=== PATIENT | female | born 1980 | race Caucasian/White ===

== ENCOUNTER 2017-10-22 11:28 | Emergency (ER) | payer OTHER ==
[~2017-10-22] VITALS: Ht 165.1 cm; Wt 82.5 kg
[~2017-10-22 11:28] MED LIST: BUPR-79 PO; ETONMIS VAGRING; LISI-729 PO
[2017-10-22 11:30] VITALS: TEMP 36.8; Ht 165.1 cm; Wt 82.5 kg
[2017-10-22] MEDS ORDERED: LORAZEPAM 2 MG/ML 1 ML VIAL IV STA (11:35)
[2017-10-22] MEDS ORDERED: SODIUM CHLORIDE 0.9% 1000ML 1,000 ML IV STA (11:35)
[2017-10-22] MEDS ORDERED: ALBUT/IPRATROP 3MG/0.5MG NEB 3 ML VIAL INH STA (11:35)
--- NOTE | 2017-10-22 11:40 | EMERGENCY ROOM VISIT NOTE ---
History Report prepared by Genia: Chaim Myers Under the Supervision of: Dr. Alfie Azul D.O. First contact with patient: 11:29 Stated Complaint: U History of Present Illness The patient is a 37 year old female who presents to the Emergency Room with complaints of worsening cough that began 3 days ago. She adds that it feels like "broke glass in her chest". Patient states that she feels "physically shaky ". She adds that she feels like she going to pass out. She adds that she does not know if she had a fever but states that she is "always hot". Patient states that she has chest tightness but that it has been improving. Pertinent past medical history includes anxiety and high blood pressure. She states that she takes 10mg of Lisinopril for her high blood pressure. Pertinent past surgical history includes a laparoscopy to treat her endometriosis. Patient denies tobacco and alcohol use. Source of History: patient Onset: 3 days ago Position: chest Timing: worsening Modifying Factors (Relieving): other (None) Associated Symptoms: + chest pain (Chest tightness) Review of Systems See HPI for pertinent positives & negatives. A total of 10 systems reviewed and were otherwise negative. Past Medical & Surgical Medical Problems: (1) Breast cancer (2) Heart disease (3) Hypertension Family History Heart disease Hypertension Social History Smoking Status: Never Smoker Alcohol Use: none Drug Use: none Marital Status: single Housing Status: lives alone Occupation Status: employed Current/Historical Medications Scheduled Albuterol Hfa (Ventolin Hfa), 2 PUFF INH Q4 Etonogestrel/Ethinyl Estradiol (Nuvaring), 1 EA VAGRING MONTHLY Fluoxetine (Prozac), Unknown Dose PO DAILY Lisinopril (Zestril), 10 MG PO DAILY Oseltamivir (Tamiflu), 75 MG PO BID Allergies Coded Allergies: No Known Allergies (Unverified , 10/22/17) Physical Exam Vital Signs Date Time Temp Pulse Resp B/P (MAP) Pulse Ox O2 Delivery O2 Flow Rate FiO2 10/22/17 14:21 84 16 142/88 98 10/22/17 13:25 87 24 137/90 97 Room Air 10/22/17 12:44 90 20 138/80 99 Room Air 10/22/17 12:18 98 10/22/17 11:55 103 18 143/101 100 Room Air 10/22/17 11:52 96 Room Air 10/22/17 11:51 95 Room Air 10/22/17 11:30 36.8 103 20 154/122 99 Room Air Physical Exam GENERAL: Patient is awake, alert, and in no acute distress. Patient is resting comfortably and somewhat anxious EYES: The conjunctivae are clear. The pupils are round and reactive. EARS, NOSE, MOUTH AND THROAT: The nose is without any evidence of any deformity. Mucous membranes are moist tongue is midline NECK: The neck is nontender and supple. RESPIRATORY: Scattered rhonchi noted throughout. No tachypnea or conversational dyspnea noted. CARDIOVASCULAR: Regular rate and rhythm noted there no murmurs rubs or gallops normal S1 normal S2 GASTROINTESTINAL: The abdomen is soft. Bowel sounds are present in all quadrants. Abdomen is nontender MUSCULOSKELETAL/EXTREMITIES: There is no evidence of gross deformity full range of motion is noted in the hips and shoulders SKIN: There is no obvious evidence of any rash. There are no petechiae, pallor or cyanosis noted. NEUROLOGIC: Patient is awake alert and oriented x3 strength is symmetric patellar reflexes are 2+ bilaterally Medical Decision & Procedures ER Provider Diagnostic Interpretation: Radiology results as stated below per my review and radiologist interpretation: HEAD WITHOUT CONTRAST (CT) CLINICAL HISTORY: 37 years-old Female presenting with dizziness. TECHNIQUE: Multidetector CT imaging of the head was performed without the use of intravenous contrast. IV contrast: None. A dose lowering technique was used consistent with the principles of ALARA (as low as reasonably achievable). COMPARISON: 04/26/2017. CT DOSE (mGy.cm): The estimated cumulative dose is 537.48 mGy.cm. FINDINGS: Dat Instructor topogram: Unremarkable. Ventricles and sulci normal in size. Brain parenchyma normal in appearance with preserved ricks-white differentiation. No mass effect or midline shift. No hemorrhage or acute territorial infarct. No extra-axial fluid collection. Paranasal sinuses and mastoid air cells clear. Calvarium intact. IMPRESSION: 1. No acute intracranial abnormality. Electronically signed by: Major Farias M.D. 10/22/2017 1:31 PM CHEST ONE VIEW PORTABLE CLINICAL HISTORY: 37 years-old Female presenting with EVALUATE ALTERED MENTAL STATUS/WEAKNESS. TECHNIQUE: Portable upright AP view of the chest was obtained. COMPARISON: 04/26/2017. FINDINGS: Cardiomediastinal silhouette normal. No focal opacity. No large effusion or pneumothorax. Osseous structures normal. Upper abdomen normal. IMPRESSION: 1. No acute cardiopulmonary disease. Electronically signed by: Major Farias M.D. 10/22/2017 11:50 AM Laboratory Results 10/22/17 11:45 Red Blood Count 4.84, Mean Corpuscular Volume 87.8, Mean Corpuscular Hemoglobin 30.4, Mean Corpuscular Hemoglobin Concent 34.6, Mean Platelet Volume 9.7, Neutrophils (%) (Auto) 51.4, Lymphocytes (%) (Auto) 38.6, Monocytes (%) (Auto) 8.4, Eosinophils (%) (Auto) 1.2, Basophils (%) (Auto) 0.3, Neutrophils # (Auto) 3.50, Lymphocytes # (Auto) 2.63, Monocytes # (Auto) 0.57, Eosinophils # (Auto) 0.08, Basophils # (Auto) 0.02 10/22/17 11:45 Test 10/22/17 11:45 10/22/17 12:45 White Blood Count 6.81 K/uL (4.8-10.8) Red Blood Count 4.84 M/uL (4.2-5.4) Hemoglobin 14.7 g/dL (12.0-16.0) Hematocrit 42.5 % (37-47) Mean Corpuscular Volume 87.8 fL (80-100) Mean Corpuscular Hemoglobin 30.4 pg (25-34) Mean Corpuscular Hemoglobin Concent 34.6 g/dl (32-36) Platelet Count 239 K/uL (130-400) Mean Platelet Volume 9.7 fL (7.4-10.4) Neutrophils (%) (Auto) 51.4 % Lymphocytes (%) (Auto) 38.6 % Monocytes (%) (Auto) 8.4 % Eosinophils (%) (Auto) 1.2 % Basophils (%) (Auto) 0.3 % Neutrophils # (Auto) 3.50 K/uL (1.4-6.5) Lymphocytes # (Auto) 2.63 K/uL (1.2-3.4) Monocytes # (Auto) 0.57 K/uL (0.11-0.59) Eosinophils # (Auto) 0.08 K/uL (0-0.5) Basophils # (Auto) 0.02 K/uL (0-0.2) RDW Standard Deviation 39.9 fL (36.4-46.3) RDW Coefficient of Variation 12.3 % (11.5-14.5) Immature Granulocyte % (Auto) 0.1 % Immature Granulocyte # (Auto) 0.01 K/uL (0.00-0.02) Prothrombin Time 9.2 SECONDS (9.0-12.0) Prothromb Time International Ratio 0.9 (0.9-1.1) Activated Partial Thromboplast Time 25.7 SECONDS (21.0-31.0) Partial Thromboplastin Ratio 1.0 Anion Gap 9.0 mmol/L (3-11) Est Creatinine Clear Calc Drug Dose 83.3 ml/min Estimated GFR () 84.5 Estimated GFR (Non- 72.9 BUN/Creatinine Ratio 10.2 (10-20) Calcium Level 8.9 mg/dl (8.5-10.1) Magnesium Level 2.2 mg/dl (1.8-2.4) Total Bilirubin 0.5 mg/dl (0.2-1) Direct Bilirubin 0.2 mg/dl (0-0.2) Aspartate Amino Transf (AST/SGOT) 46 U/L (15-37) Alanine Aminotransferase (ALT/SGPT) 48 U/L (12-78) Alkaline Phosphatase 116 U/L (45-117) Troponin I < 0.015 ng/ml (0-0.045) Total Protein 8.5 gm/dl (6.4-8.2) Albumin 3.3 gm/dl (3.4-5.0) Thyroid Stimulating Hormone (TSH) 2.440 uIu/ml (0.300-4.500) Human Chorionic Gonadotropin, Qual NEG (NEG) Influenza Type A (RT-PCR) Neg for Influ A (NEG) Influenza Type B (RT-PCR) POS for Influ B (NEG) Urine Color YELLOW Urine Appearance CLEAR (CLEAR) Urine pH 5.5 (4.5-7.5) Urine Specific [place] 1.010 (1.000-1.030) Urine Protein NEG (NEG) Urine Glucose (UA) NEG (NEG) Urine Ketones NEG (NEG) Urine Occult Blood NEG (NEG) Urine Nitrite NEG (NEG) Urine Bilirubin NEG (NEG) Urine Urobilinogen NEG (NEG) Urine Leukocyte Esterase NEG (NEG) Laboratory results per my review. Medications Administered Medications (Trade) Dose Ordered Sig/Eric Route Start Time Stop Time Status Last Admin Dose Admin Sodium Chloride 1,000 ml @ 999 mls/hr Q1H1M STAT IV 10/22/17 11:35 10/22/17 12:35 DC 10/22/17 11:48 999 MLS/HR Lorazepam (Ativan Inj) 0.5 mg NOW STAT IV 10/22/17 11:35 10/22/17 11:37 DC 10/22/17 11:48 0.5 MG Albuterol/ Ipratropium (Duoneb) 3 ml NOW STAT INH 10/22/17 11:35 10/22/17 11:37 DC 10/22/17 11:48 3 ML Oseltamivir Phosphate (Tamiflu Cap) 75 mg NOW STAT PO 10/22/17 12:57 10/22/17 12:58 DC 10/22/17 13:29 75 MG ECG Per My Interpretation Indication: SOB/dyspnea Rate (beats per minute): 85 Rhythm: normal sinus Findings: no ectopy, other (No acute ST segments) Comparison ECG Date: 04/26/17 Change: no significant change ED Course 1130: The patient was evaluated in room B3B. A complete history and physical examination were performed. 1135: Duoneb 3ml INH, Ativan Inj 0.5mg IV, and NSS 1,000 ml @ 999 mls/hr IV 1216: I reassessed the patient who is resting comfortably. 1257: Tamiflu Cap 75mg PO 1321: Upon reevaluation, the patient is resting comfortably. I discussed the results and treatment plan with her. She verbalized agreement of the treatment plan. She was discharged home. Medical Decision Prior records/ancillary studies reviewed. Triage Nursing notes reviewed. The patient's history was concerning for respiratory difficulties. Differential diagnosis: Etiologies such as infections, reactive airway disease, pneumonia, pneumothorax , COPD, CHF, cardiac ischemia, pulmonary embolism, musculoskeletal, gastrointestinal, as well as others were entertained. The patient is a 37-year-old female who presented to the emergency department for an evaluation of dizziness. The patient states that she had tightness in the chest as well as coughing. The patient had a subjective fever. I discussed patient's laboratory and radiographic studies with her. She was not hypoxic. The patient was very anxious her blood pressure was elevated. She does take medications for chronic high blood pressure but I felt that some of her condition was secondary to anxiety. She was treated with Ativan and a DuoNeb. She was also given a dose of Tamiflu when her flu swab returned positive. I discussed patient's laboratory and radiographic studies with her she was encouraged to rest and avoid any strenuous activity. She was also encouraged to drink plenty clear liquids. Otherwise she was encouraged to follow-up with her family doctor for further evaluation but return to the emergency department immediately if symptoms change worsen or the need arises. Medication Reconcilliation Current Medication List: was personally reviewed by me Blood Pressure Screening Patient's blood pressure: Elevated blood pressure Blood pressure disposition: Elevated BP felt to be situational Impression Primary Impression: Dizziness Additional Impressions: Hypertension Influenza Scribe Attestation The scribe's documentation has been prepared under my direction and personally reviewed by me in its entirety. I confirm that the note above accurately reflects all work, treatment, procedures, and medical decision making performed by me. Departure Information Dispostion Home / Self-Care Prescriptions Oseltamivir (Tamiflu) 75 Mg Cap 75 MG PO BID, #10 CAP Prov: Alfie Azul DO 10/22/17 Albuterol Hfa (VENTOLIN HFA) 200 Puffs/07572 Mcg Aers 2 PUFF INH Q4, #1 INHALER Prov: Alfie Azul DO 10/22/17 Referrals Felisa Woo, C.R.N.P. (PCP) Forms HOME CARE DOCUMENTATION FORM, IMPORTANT VISIT INFORMATION Patient Instructions ED Dizziness [facility], ED Flu, My [facility] Additional Instructions Call your family doctor to schedule a follow-up appointment. Rest and avoid any strenuous activity. Drink plenty clear liquids. Continue all medications as prescribed. Continue using Motrin and Tylenol as directed for fever and body aches. Problem Qualifiers
[2017-10-22 11:50] LABS: BASO % 0.3 %; BASO ABS # 0.02 K/uL (0-0.2); EOS % 1.2 %; EOS ABS # 0.08 K/uL (0-0.5); HEMATOCRIT 42.5 % (37-47); HEMOGLOBIN 14.7 g/dL (12.0-16.0); IG# 0.01 K/uL (0.00-0.02); LYMPH % 38.6 %; LYMPH ABS # 2.63 K/uL (1.2-3.4); MEAN CELL VOLUME 87.8 fL (80-100); MEAN CORPUSCULAR HEMOGLOBIN 30.4 pg (25-34); MEAN CORPUSCULAR HGB CONC 34.6 g/dl (32-36); MEAN PLATELET VOLUME 9.7 fL (7.4-10.4); MONO % 8.4 %; MONO ABS # 0.57 K/uL (0.11-0.59); NEUT % 51.4 %; PLATELET COUNT 239 K/uL (130-400); RED CELL DISTRIBUTION WIDTH CV 12.3 % (11.5-14.5); RED CELL DISTRIBUTION WIDTH SD 39.9 fL (36.4-46.3); WHITE BLOOD COUNT 6.81 K/uL (4.8-10.8)
--- NOTE | 2017-10-22 11:51 | DIAGNOSTIC IMAGING REPORT ---
CHEST ONE VIEW PORTABLE CLINICAL HISTORY: 37 years-old Female presenting with EVALUATE ALTERED MENTAL STATUS/WEAKNESS. TECHNIQUE: Portable upright AP view of the chest was obtained. COMPARISON: 04/26/2017. FINDINGS: Cardiomediastinal silhouette normal. No focal opacity. No large effusion or pneumothorax. Osseous structures normal. Upper abdomen normal. IMPRESSION: 1. No acute cardiopulmonary disease. Electronically signed by: Major Farias M.D. 10/22/2017 11:50 AM Dictated Date/Time: 10/22/2017 11:49 AM
[2017-10-22 11:52] VITALS: O2SAT 96
[2017-10-22 12:01] LABS: INR 0.9 (0.9-1.1); PTT PATIENT 25.7 SECONDS (21.0-31.0)
[2017-10-22] MEDS ORDERED: FLUO10CA48 PO (12:04)
[2017-10-22] MEDS ORDERED: LISI-461 PO (12:04)
[2017-10-22 12:06] LABS: ALBUMIN 3.3 gm/dl (3.4-5.0); ALT/SGPT 48 U/L (12-78); AST/SGOT 46 U/L (15-37); BLOOD UREA NITROGEN 10 mg/dl (7-18); CALCIUM 8.9 mg/dl (8.5-10.1); CARBON DIOXIDE 27 mmol/L (21-32); GLUCOSE 108 mg/dl (70-99); POTASSIUM 3.4 mmol/L (3.5-5.1); SODIUM 135 mmol/L (136-145)
[2017-10-22 12:17] LABS: ALKALINE PHOSPHATASE 116 U/L (45-117); TOTAL PROTEIN 8.5 gm/dl (6.4-8.2)
[2017-10-22 12:47] LABS: INFLUENZA A PCR Neg for Influ A (NEG)
[2017-10-22 12:49] LABS: INFLUENZA B PCR POS for Influ B (NEG)
[2017-10-22] MEDS ORDERED: OSELTAMIVIR PHOSPHATE 75 MG CAP PO STA (12:57)
--- NOTE | 2017-10-22 13:32 | DIAGNOSTIC IMAGING REPORT ---
HEAD WITHOUT CONTRAST (CT) CLINICAL HISTORY: 37 years-old Female presenting with dizziness. TECHNIQUE: Multidetector CT imaging of the head was performed without the use of intravenous contrast. IV contrast: None. A dose lowering technique was used consistent with the principles of ALARA (as low as reasonably achievable). COMPARISON: 04/26/2017. CT DOSE (mGy.cm): The estimated cumulative dose is 537.48 mGy.cm. FINDINGS: Shear Scrapman topogram: Unremarkable. Ventricles and sulci normal in size. Brain parenchyma normal in appearance with preserved ricks-white differentiation. No mass effect or midline shift. No hemorrhage or acute territorial infarct. No extra-axial fluid collection. Paranasal sinuses and mastoid air cells clear. Calvarium intact. IMPRESSION: 1. No acute intracranial abnormality. Electronically signed by: Major Farias M.D. 10/22/2017 1:31 PM Dictated Date/Time: 10/22/2017 1:25 PM
[2017-10-22] MEDS ORDERED: VNTHFA/IN INH (13:47)
[2017-10-22] MEDS ORDERED: OSEL75CA12 PO (13:47)
[2017-10-22 14:21] VITALS: BP 142/88; PULSE 84; O2SAT 98
== END 2017-10-22 14:25 | disposition home or self-care (01) ==
LOC: EDSEX 11:28 → EDBD 11:28 → C.EDB 11:29
DX: R42 Dizziness and giddiness (principal); I10 Essential (primary) hypertension; J10.1 Influenza due to other identified influenza virus with other respiratory manifestations; Z79.899 Other long term (current) drug therapy

== ENCOUNTER 2025-02-21 08:15 | Inpatient (IN) ==
--- NOTE | 2025-02-21 08:45 | Emergency Department Note ---
Impression & Plan Suicidal ideation ED Provider Note NAME: ANUP VALADEZ AGE: 45 SEX: F : 1980 ARRIVES VIA: Walk-In INFORMANT: Patient ED PROVIDER(S): Jan Lopez MD CHIEF COMPLAINT: Suicidal ideation PLAN: Disposition: Inpatient psychiatric treatment. MEDICAL DECISION MAKING: The patient is a pleasant 45-year-old woman with a past medical history of anxiety/depression who presents to the emergency department via walk-in accompanied by her friend and work colleague/scientific laboratory supervisor for evaluation of worsening depression and suicidal ideation for the past couple of days where the patient reports having fleeting thoughts of overdosing on Benadryl. Patient reports a remote history of suicide attempt in her early 20s but none since then. The patient is on fluoxetine and bupropion through her PCP office. She reports intermittent nausea and vomiting related to her anxiety. Otherwise she denies fevers, chills, cough, congestion, symptoms. On evaluation company by psychiatric showcase trimmer the patient is no acute distress, afebrile with stable vital signs. Abdomen is benign. Patient reports depression with suicidal ideation and intermittent plan per hpi. WBC 11.9 K with neutrophilia but no left shift, nonspecific. H/H and platelets within normal limits. Chemistry with bicarbonate of 17 and anion gap of 15 consistent with mild dehydration in the setting of the patient's reported poor oral intake in nausea. Total bilirubin 1.2, nonspecific with otherwise normal LFTs. TSH within limits. hCG negative. UA with 4+ ketones consistent with patient's dehydration and otherwise no evidence of infection. Patient medically cleared. Patient was referred to for voluntary inpatient psychiatric treatment. Patient was accepted. 201 signed. Triage Nursing notes reviewed and agree them. Prior/external medical records reviewed Vital Signs: reviewed Differential diagnosis: Mood disorder, infection, hypoglycemia, electrolyte abnormalities, cardiac sources, intracerebral event, toxicologic, trauma, neurologic, as well as other pathologies. ER treatment provided: See below. Laboratory studies: See below Consultation(s): Case management HPI: Per MDM. ROS: See above HPI for pertinent positives & negatives. A total of 10 systems reviewed and were otherwise negative. VITALS:See Below PHYSICAL EXAMINATION: GENERAL: Awake, alert, melancholy-appearing, in no distress HENT: Normocephalic, atraumatic. Oropharynx with dry mucous membranes and otherwise unremarkable. EYES: Normal conjunctiva. Sclera non-icteric. EOMI. No nystamgus. PEARRL. NECK: Supple. No nuchal rigidity. FROM. No JVD. RESPIRATORY: Clear to auscultation. CARDIAC: Tachycardic rate, normal rhythm. Extremities warm and well perfused. Pulses equal. ABDOMEN: Soft, non-distended. No tenderness to palpation. No rebound or guarding. No masses. MUSCULOSKELETAL: Chest examination reveals no tenderness. The back is symmetrical on inspection without obvious abnormality. There is no CVA tenderness to palpation. No joint edema. LOWER EXTREMITIES: Calves are equal size bilaterally and non-tender. No edema. No discoloration. NEURO: Normal sensorium. No sensory or motor deficits noted. SKIN: No rash or jaundice noted. PSYCH: Depression, suicidal ideation. Intermittent plan. Jan Lopez MD Past Med/Surg History Problem List Suicidal ideation (Acute) At increased risk for malignant neoplasm of breast TYRER CUZICK SCORE 20.3% Heterogeneously dense tissue of both breasts on mammography Family history of malignant neoplasm of breast MATERNAL AUNT DX EARLY 40'S Encounter for IUD insertion Hemorrhagic ovarian cyst (Acute) Ovarian cyst rupture (Acute) Heart disease (Chronic) Hypertension (Chronic) Dizziness (Acute) Fall from slipping on ice (Acute) Fracture of coronoid process of right ulna (Acute) Right radial head fracture (Acute) Work related injury (Acute) Medical History Depression with anxiety Ovarian cyst rupture Hypertension Surgical History H/O oral surgery History of laparotomy Family History Aunt Breast cancer Social History Smoking Status: Never smoker Do You Dip or Chew Tobacco: No; Preferred Language: Wolof Communication Ability: Effective Secretary Book Keeper Required: No Beliefs That Will Affect Care: None Feels Safe at Home: Yes Gender Identity: Female Assistive Devices: Glasses Allergies Allergies Allergy/AdvReac Type Severity Reaction Status Date / Time tramadol Allergy Verified 11/01/23 08:11 Home Meds Home Medications Medication Instructions Recorded Confirmed bupropion HCl 300 mg PO DAILY 11/01/23 02/21/25 fluoxetine 80 mg PO DAILY 11/01/23 02/21/25 lisinopril 10 mg PO DAILY 11/01/23 02/21/25 Results & Data (ED) Vital Signs Vital Signs - 24 hr 02/21/25 08:17 02/21/25 10:15 02/21/25 12:00 Temperature 36.5 C Temperature Source Temporal Artery Scan Pulse Rate 102 H Pulse Rate [Left Finger] 89 88 Pulse Rhythm [Left Finger] Regular Pulse Strength [Left Finger] Normal Respiratory Rate 22 17 19 Respiratory Effort / Characteristics Non-Labored Spontaneous Non-Labored Respiratory Depth Normal Normal Blood Pressure 151/98 H Blood Pressure [Left Arm] 147/82 H 165/92 H Blood Pressure Mean 115 Blood Pressure Mean [Left Arm] 103 116 Blood Pressure Position [Left Arm] Sitting Pulse Oximetry 100 99 97 Oxygen Delivery Method Room Air Room Air Room Air Sepsis Recent Fever Within 48 Hours No Sepsis New/Unexplained Change in Mental Status N/A Sepsis Action Taken by Nursing No Action Required Laboratory Data Attestation: I reviewed the patient's lab results. 02/21/25 08:50 02/21/25 08:50 Lab Results 02/21/25 02/21/25 02/21/25 Range/Units 08:30 08:50 11:51 WBC 11.96 H (4.8-10.8) K/ul RBC 4.96 (4.20-5.40) M/uL Hgb 14.8 (12.0-16.0) g/dl Hct 43.6 (37.0-47.0) % MCV 87.9 (80.0-100.0) fL MCH 29.8 (25.0-34.0) pg MCHC 33.9 (32.0-36.0) g/dL RDW Std Deviation 38.5 (36.4-46.3) fL RDW Coeff of Mary 11.9 (11.5-14.5) % Plt Count 257 (130-400) K/uL MPV 10.6 (9.4-12.4) fL Immature Gran % (Auto) 0.3 % Neut % (Auto) 82.0 % Lymph % (Auto) 12.0 % [place] % (Auto) 5.2 % Eos % (Auto) 0.2 % Baso % (Auto) 0.3 % Neut # (Auto) 9.81 H (1.40-6.50) K/uL Lymph # (Auto) 1.43 (1.20-3.40) K/uL [place] # (Auto) 0.62 H (0.11-0.59) K/uL Eos # (Auto) 0.02 (0.00-0.50) K/uL Baso # (Auto) 0.04 (0.00-0.20) K/uL Immature Gran # (Auto) 0.04 (0.01-0.20) K/uL Sodium 135 L (136-145) mmol/L Potassium 3.9 (3.5-5.1) mmol/L Chloride 103 (98-107) mmol/L Carbon Dioxide 17 L (21-32) mmol/L Anion Gap 15 H (3-11) BUN 8 (6-23) mg/dl Creatinine 0.90 (0.6-1.2) mg/dl Est Cr Clr Drug Dosing 81.1 ml/min eGFR 81.35 BUN/Creatinine Ratio 8.9 L (10-20) Glucose 109 H (70-99(Fasting)) mg/dl Calcium 9.6 (8.6-10.3) mg/dl Total Bilirubin 1.2 H (0.2-1.0) mg/dl AST 17 (13-39) U/L ALT 9 (7-52) U/L Alkaline Phosphatase 59 (34-104) U/L Total Protein 7.8 (6.0-8.3) gm/dl Albumin 4.7 (3.4-5.0) gm/dl Globulin 3.1 (2.5-4.0) gm/dl Albumin/Globulin Ratio 1.5 (0.9-2) TSH 2.227 (0.300-4.500) uIu/ml HCG, Qual Negative (Negative) Urine Color Yellow Urine Appearance Clear (Clear) Urine pH 5.0 (4.5-7.5) Ur Specific [place] 1.019 (1.000-1.030) Urine Protein Negative (Negative) Urine Glucose (UA) Negative (Negative) Urine Ketones 4+ H (Negative) Urine Blood Negative (Negative) Urine Nitrite Negative (Negative) Urine Bilirubin Negative (Negative) Urine Urobilinogen Negative (Negative) Ur Leukocyte Esterase Negative (Negative) Urine Comment Salicylates < 3.0 L (3.0-30) mg/dl Urine Opiates Screen Neg (Neg) Ur Methadone, Qual Neg (Neg) Urine Fentanyl Screen Neg (Neg) Acetaminophen 4 L (10-30) ug/ml Urine Barbiturates Neg (Neg) Ur Phencyclidine (PCP) Neg (Neg) U Amphetamin/Meth Scrn Neg (Neg) MDMA (Ecstasy) Screen Pos H (Neg) U Benzodiazepines Scrn Neg (Neg) Ur Cocaine Metabolite Neg (Neg) U Marijuana (THC) Screen Pos H (Neg) Ethyl Alcohol mg/dL < 10.0 (<10.0) mg/dl SARS-CoV-2, RNA, NAAT NEGATIVE (NEGATIVE) Administered Medications Acetaminophen (Acetaminophen 325 Mg Tab) 650 mg PO Q4H PRN PRN Reason: Headache or Minor Fever Stop: 03/23/25 14:15 Last Admin: 02/21/25 17:39 Dose: 650 mg Documented By: Admin: 02/21/25 14:24 Dose: 650 mg Documented By: CHRISTINA Ibuprofen (Ibuprofen 200 Mg Tab) 400 mg PO Q8H PRN PRN Reason: Pain Stop: 03/23/25 18:14 Last Admin: 02/21/25 18:24 Dose: 400 mg Documented By: GLORIA Discontinued Medications Famotidine (Famotidine 20 Mg Tab) 20 mg PO NOW ONE Stop: 02/21/25 10:04 Last Admin: 02/21/25 10:34 Dose: 20 mg Documented By: [facility] Ondansetron HCl (Ondansetron 4 Mg Od Tab) 4 mg PO NOW STA Stop: 02/21/25 10:04 Last Admin: 02/21/25 10:34 Dose: 4 mg Documented By: [facility] Discharge Plan Visit Data Chief Complaint: Mental Health Evaluation Stated Complaint: MENTAL HEALTH ED Provider: Jan Lopez Discharge Problem: Suicidal ideation Patient Disposition: Admitted As Inpatient Condition: Fair Discharge Instructions Interventions: ED Discharge Assessment Last Done: 02/21/25 13:42
[2025-02-21 08:55] LABS: Appearance Urine Clear (Clear); Glucose Urine UA Negative (Negative)
[2025-02-21 09:15] LABS: Hematocrit (blood only) 43.6 % (37.0-47.0); Hemoglobin 14.8 g/dl (12.0-16.0); Immature Granulocytes # (auto) 0.04 K/uL (0.01-0.20); Immature Granulocytes % (auto) 0.3 %; Mean Corpuscular Hemoglobin 29.8 pg (25.0-34.0); Mean Corpuscular Volume 87.9 fL (80.0-100.0); Platelet Count 257 K/uL (130-400); RDW Standard Deviation 38.5 fL (36.4-46.3); Red Blood Count 4.96 M/uL (4.20-5.40); White Blood Count 11.96 K/ul (4.8-10.8)
[2025-02-21 09:22] LABS: Amphetamines+Metham, Urine Neg (Neg); MDMA (Ecstacy), Urine Pos (Neg); Marijuana, Urine Pos (Neg)
[2025-02-21 09:24] LABS: Anion Gap 15.0 (3-11); Bilirubin,Total 1.2 mg/dl (0.2-1.0); Calcium 9.6 mg/dl (8.6-10.3); Carbon Dioxide 17.0 mmol/L (21-32); Chloride 103.0 mmol/L (98-107); Potassium 3.9 mmol/L (3.5-5.1); Sodium 135.0 mmol/L (136-145)
[2025-02-21 09:30] LABS: Alanine Aminotransferase 9.0 U/L (7-52); Albumin Globulin Ratio 1.5 (0.9-2); Alkaline Phosphatase 59.0 U/L (34-104); Blood Urea Nitrogen 8.0 mg/dl (6-23); Creatinine Clr Calc Pharmacy 81.1 ml/min; Globulin 3.1 gm/dl (2.5-4.0); Glucose 109.0 mg/dl (70-99(Fasting)); Total Protein 7.8 gm/dl (6.0-8.3)
[2025-02-21 09:37] LABS: Pregnancy Test, Serum Negative (Negative)
[2025-02-21 09:56] LABS: Thyroid Stimulating Hormone 2.227 uIu/ml (0.300-4.500)
[2025-02-21 10:02] LABS: Acetaminophen 4 ug/ml (10-30); Salicylate < 3.0 mg/dl (3.0-30)
[2025-02-21] MEDS: ONDANSETRON 4 MG OD TAB PO STA (10:34)
[2025-02-21] MEDS: FAMOTIDINE 20 MG TAB PO ONE (10:34)
[2025-02-21] MEDS ORDERED: ALUMINUM/MAGNESIUM SUSP 30 ML UDC PO PRN (14:16)
[2025-02-21] MEDS ORDERED: MAGNESIUM HYDROXIDE SUSP 30 ML UDC PO PRN (14:16)
[2025-02-21] MEDS ORDERED: BISMUTH SUBSALICYLATE 262 MG CHEW PO PRN (14:16)
[2025-02-21] MEDS ORDERED: SODIUM CHLORIDE 0.65% NA SOLN 45 ML (OCEAN) PRN (14:16)
[2025-02-21] MEDS: ACETAMINOPHEN 325 MG TAB PO PRN (14:24)
[2025-02-21] MEDS: IBUPROFEN 200 MG TAB PO PRN (18:24)
--- NOTE | 2025-02-22 08:46 | History & Physical ---
Date of Service February 22, 2025 Impression / Recommendations Impression ANUP VALADEZ is a 45-year-old woman who currently lives in [place] alone, has a history of depression and anxiety, and was admitted on 02/21/25 13:21 on a 201 voluntary commitment for depression with SI with plan of overdosing on Benadryl. Diagnostically consistent with major depressive disorder with suicidal ideation and generalized anxiety disorder with panic attacks in the context of antidepressant discontinuation and increased psychosocial stressors including work related stress, grief and some social isolation. Discussed medication treatment options in detail. Reviewed risks, benefits and alternatives. She consents to starting sertraline for depression and anxiety, as she previously responded well to SSRI treatment, as well as mirtazapine for depression anxiety sleep and propranolol as off-label use for physical anxiety symptoms/panic attacks. She consents to discontinuing Prozac and Wellbutrin given limited efficacy prior to 2024. Reviewed side effects including but not limited to GI upset, headache, sexual side effects, vivid dreams of sertraline; sedation, possible increased appetite or weight gain with mirtazapine: Dizziness/syncope/asthma with propranolol. Discussed option for [employer] online therapy platform which would include cognitive behavioral therapy and dialectical behavioral therapy. Encouraging continuation of mindfulness, meditation, yoga and exercise. Discharge planning to include decisions about whether or not she may relocate to [place] to be closer to family either short-term or longer-term. Overall I spent a total of 85 minutes for this admission including review of chart records, review of labwork, direct evaluation of the patient, counseling the patient, ordering medication, risk assessment, discussion with the psychiatric liason RN and documentation in the electronic health record. (1) MDD (major depressive disorder), recurrent episode, severe: (2) Generalized anxiety disorder with panic attacks: (3) Suicidal ideation: (4) Insomnia: Plan 02/22/2025: The patient was admitted to the [facility] ([facility]) on q15 min checks (behavioral with suicide precautions) for safety. The patient will participate in group, recreational, and milieu therapies and will be offered additional individual and family sessions as clinically appropriate. -Start sertraline 50mg daily -Start mirtazapine 15mg HS -Start propranolol 10mg TID Inventory Assets Strengths: supportive relationships, willing to get treatment Needs: safety and stabilization, medication adjustment, additional coping skills, increased outpatient services Suicide Risk Level Suicide Risk Level: High-Moderate (q15 min suicide checks) (depression with SI but feels safe in the hospital and feels comfortable asking for support when needed) Risk Factors Assessment Male: No : Yes Do You Have Access To A Gun?: No Health Problems: No Mental Health Diagnoses: Yes Substance Use Disorders: No Previous Attempt: Yes Family History of Suicide: Yes Previous Psychiatric Hospitalization: No Hopelessness: Yes Protective Factors Assessment [employer] Beliefs: Yes 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 Chief Complaint "I can't relax physically, I feel like I'm bracing for a crash". History of Present Illness Anup presents for psychiatric admission following worsening depression and anxiety symptoms and intensifying suicidal ideation to the point of rehearsal behaviors to overdose with Benadryl. 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 She reports a month-long exacerbation of depression and anxiety that began in July following changes at work. She describes feeling constantly physically uncomfortable, as if "bracing for a crash". Her anxiety has also intensified manifesting as constant physical discomfort, nausea and panic attacks. She describes feeling unable to relax physically. She endorses depressive symptoms including tearfulness, anhedonia (no longer interested in tennis), decreased motivation, self-guilt, helplessness, hopelessness, decreased energy, decreased concentration, "despair", decreased appetite with nausea, and decreased sleep with 2-3 hours per night. Work related stress has been a significant contributing factor and recently has found she cannottolerate meetings with her coworkers which previously she found enjoyable and not stressful. She has transitioned to a new position with intensive training over the last 6 weeks but this has been overwhelming, anxiety provoking and causing self guilt that she is not living up to others expectations when she feels they helped her get this position and that "I'm letting everyone down". She reports suicidal thoughts for many months which she coped with by using humor or jokes but these have continued to intensify. She notes that on many nights she has prayed that she could go to sleep and not wake up. Over the summer had been researching potential ways she could such as looking into means such as cyanide or apple seeds. On Tuesday night she had a bottle of Benadryl next to her and was looking up how much it would take to . At this point she realized she needed to seek additional support and reached out to her boss who then encouraged her to come to the hospital. She notes some shame and guilt about having to be in the inpatient setting thinking that she should have been able to fix this on her own or "how did I let it get this to this point". However she can also acknowledge that she has been attempting various coping skills including meditation, yoga, walking and mindfulness practices. She is also considered moving to [place] to be closer to her supportive family. She discontinued her psychiatric medications earlier in the year due to financial constraints and had been stretching out the dosing. She recently restarted Prozac at 80 mg daily and Wellbutrin 300 mg about 2 weeks ago but has only taken approximately 3 doses over this timeframe. She reports that Prozac was previously helpful when taking consistently for several years but also at times seemed to not be offering as much benefit recently. She identifies her biggest target symptoms as: sleep and being able to relax physically. Psychiatric ROS notable for no current nor history of symptoms of padmini, psychosis, OCD nor eating disorder. Past Psychiatric History Current Psychiatric Diagnosis: Depression; Anxiety Outpatient Services: none Previous Psych Admissions: none Do You Have Access To A Gun?: No History of Previous Suicide Attempt: Yes (Age 24) Describe Attempts in the Past: tried to walk in front of a bus Past Medication Trials: Prozac 80mg for several years (was helpful) Wellbutrin (seemed like a good mix) Lexapro Citalopram Allergies Allergy/AdvReac Type Severity Reaction Status Date / Time tramadol AdvReac Abdominal Verified 02/22/25 10:23 Pain Home Medications Medication Instructions Recorded Confirmed Type bupropion HCl 300 mg PO DAILY 11/01/23 02/21/25 History fluoxetine 80 mg PO DAILY 11/01/23 02/21/25 History lisinopril 10 mg PO DAILY 11/01/23 02/21/25 History Family History Family History of: Other Mood Disorders, Alcoholism/Drug Abuse and Suicide Completion Family Mental Health History Comment: Brother from alcoholism in 2021; maternal grandfather shot self Alcohol History Hx of Alcohol Use Over the Past 12 Months: No AUDIT Total Score: 0 few times per year Smoking Use Have You Smoked or Used Tobacco Products in the Last 30 Days: No Smoking Status: Never smoker Substance History Hx of Prescription Med Misuse Over the Past 12 Months: No Hx of Over the Counter Med Misuse Over the Past 12 Months: No Hx of Inhalent Misuse Over the Past 12 Months: No Hx of Organic Substance Use Over the Past 12 Months: Yes (THC + on UDS) Hx of Illegal Substances/Street Drug Use Over Past 12 Months: No Problems as a Result of Past Substance Use: None Identified tried THC gummies, helped feel more calm, didn't like the taste Personal History Living Arrangements: Apartment Highest Grade Completed: Some College 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 ([employer] ) Marital Status: Single Beliefs That Will Affect Care: None Current Legal Problems: No Hx Legal Problems: No Patient History Medical History Depression with anxiety Ovarian cyst rupture Hypertension Surgical History H/O oral surgery History of laparotomy Family History Aunt Breast cancer Social History Smoking Status: Never smoker Do You Dip or Chew Tobacco: No; Preferred Language: Swedish Communication Ability: Effective Brush Cutter Required: No Beliefs That Will Affect Care: None Feels Safe at Home: Yes Gender Identity: Female Assistive Devices: Glasses Review of Systems Review of Systems: All systems reviewed & are unremarkable except as noted in HPI & below Physical Exam Psychiatric: Orientation: alert and oriented x 3 Apperance: appropriately dressed and appropriately groomed Eye Contact: good eye contact Motor Behavior: no abnormal motor movements Speech: normal rate/rhythm/volume of speech Affect: + depressed affect, + anxious affect and + tearful affect Mood: + depressed mood and + anxious mood Thought Process: + circumstantial thought process Thought Content: + cognitive distortions, reality based without delusions, + hopelessness, + worthlessness, + loneliness and + guilt Suicidal Thoughts: denies suicidal plan (none for hospital) and denies suicidal intent; + reports suicidal thoughts Homicidal Thoughts: denies homicidal thoughts Hallucinations: no auditory hallucinations and no visual hallucinations Cognition: recent memory grossly intact, remote memory grossly intact, attention grossly intact and language grossly intact Estimated Intelligence: consistent with education level Insight: + fair insight Judgment: + fair judgement Vital Signs (Past 24 Hours): Last Vital Signs Temp 36.7 C 02/22/25 06:39 Pulse 96 H 02/22/25 06:39 Resp 18 02/22/25 06:39 BP 152/81 H 02/22/25 06:43 Pulse Ox 99 02/22/25 06:39 O2 Del Method Room Air 02/22/25 06:39 Exam Statement: A physical exam was performed in the ED by Dr. Lopez for the purposes of medical clearance. I accept that physical as correct and adequate for the purposes of the inpatient physical exam. Results & Data ([facility]) Laboratory Results Laboratory Results - last 24 hr 02/21/25 02/21/25 02/21/25 08:30 08:50 11:51 WBC 11.96 H RBC 4.96 Hgb 14.8 Hct 43.6 MCV 87.9 MCH 29.8 MCHC 33.9 RDW Std Deviation 38.5 RDW Coeff of Mary 11.9 Plt Count 257 MPV 10.6 Immature Gran % (Auto) 0.3 Neut % (Auto) 82.0 Lymph % (Auto) 12.0 [place] % (Auto) 5.2 Eos % (Auto) 0.2 Baso % (Auto) 0.3 Neut # (Auto) 9.81 H Lymph # (Auto) 1.43 [place] # (Auto) 0.62 H Eos # (Auto) 0.02 Baso # (Auto) 0.04 Immature Gran # (Auto) 0.04 Sodium 135 L Potassium 3.9 Chloride 103 Carbon Dioxide 17 L Anion Gap 15 H BUN 8 Creatinine 0.90 Est Cr Clr Drug Dosing 81.1 eGFR 81.35 BUN/Creatinine Ratio 8.9 L Glucose 109 H Calcium 9.6 Total Bilirubin 1.2 H AST 17 ALT 9 Alkaline Phosphatase 59 Total Protein 7.8 Albumin 4.7 Globulin 3.1 Albumin/Globulin Ratio 1.5 TSH 2.227 HCG, Qual Negative Urine Color Yellow Urine Appearance Clear Urine pH 5.0 Ur Specific [place] 1.019 Urine Protein Negative Urine Glucose (UA) Negative Urine Ketones 4+ H Urine Blood Negative Urine Nitrite Negative Urine Bilirubin Negative Urine Urobilinogen Negative Ur Leukocyte Esterase Negative Urine Comment Salicylates < 3.0 L Urine Opiates Screen Neg Ur Methadone, Qual Neg Urine Fentanyl Screen Neg Acetaminophen 4 L Urine Barbiturates Neg Ur Phencyclidine (PCP) Neg U Amphetamin/Meth Scrn Neg Urine MDEA Pending MDMA (Ecstasy) Screen Pos H MDMA Pending Urine MDMA Pending U Benzodiazepines Scrn Neg Ur Cocaine Metabolite Neg U Marijuana (THC) Screen Pos H U Marijuana THC Carboxy Pending Drug Screen Comment Pending Ethyl Alcohol mg/dL < 10.0 SARS-CoV-2, RNA, NAAT NEGATIVE Current Inpatient Medications Current Inpatient Medications: Current Inpatient Medications Acetaminophen (Acetaminophen 325 Mg Tab) 650 mg PO Q4H PRN PRN Reason: Headache or Minor Fever Stop: 03/23/25 14:15 Last Admin: 02/21/25 17:39 Dose: 650 mg Al Hydrox/Mg Hydrox/Simethicone (Aluminum/Magnesium Susp 30 Ml Udc) 30 ml PO Q4H PRN PRN Reason: GI Upset Stop: 03/23/25 14:15 Bismuth Subsalicylate (Bismuth Subsalicylate 262 Mg Chew) 2 tab PO Q30M PRN PRN Reason: Loose Stool/Diarrhea Stop: 03/23/25 14:15 Bupropion HCl (Bupropion Xl 300 Mg Tabcr) 300 mg PO DAILY DANNI Stop: 03/24/25 08:59 Fluoxetine HCl (Fluoxetine Hcl 20 Mg Cap) 80 mg PO DAILY DANNI Stop: 03/24/25 08:59 Hydroxyzine HCl (Hydroxyzine Hcl 25 Mg Tab) 50 mg PO HSZ PRN PRN Reason: Insomnia Stop: 03/23/25 14:15 Last Admin: 02/22/25 02:36 Dose: 50 mg Hydroxyzine HCl (Hydroxyzine Hcl 25 Mg Tab) 25 mg PO Q4H PRN PRN Reason: Anxiety Stop: 03/23/25 14:15 Last Admin: 02/22/25 03:27 Dose: 25 mg Ibuprofen (Ibuprofen 200 Mg Tab) 400 mg PO Q8H PRN PRN Reason: Pain Stop: 03/23/25 18:14 Last Admin: 02/21/25 18:24 Dose: 400 mg Lisinopril (Lisinopril 10 Mg Tab) 10 mg PO DAILY DANNI Stop: 03/24/25 08:59 Magnesium Hydroxide (Magnesium Hydroxide Susp 30 Ml Udc) 30 ml PO DAILY PRN PRN Reason: Constipation Stop: 03/23/25 14:15 Sodium Chloride (Sodium Chloride 0.65% Na Soln 45 Ml ([place])) 1 - 2 sprays NA PRN PRN PRN Reason: Nasal Dryness/Congestion Stop: 03/23/25 14:15
[2025-02-22] MEDS: PROPRANOLOL HCL 10 MG TAB PO SCH (11:09)
[2025-02-22] MEDS: MIRTAZAPINE TAB 15 MG TAB PO SCH (21:42)
[2025-02-23] MEDS: SERTRALINE HCL 50 MG TABLET PO SCH (09:13)
--- NOTE | 2025-02-23 16:27 | Psychiatric Progress Note ---
Date of Service February 23, 2025 Impression / Recommendations Impression ANUP VALADEZ is a 45-year-old woman who currently lives in [place] alone, has a history of depression and anxiety, and was admitted on 02/21/25 13:21 on a 201 voluntary commitment for depression with SI with plan of overdosing on Benadryl. Concern for MDD with anxious distress. Associated panic symptoms. Family psych history remarkable for completed suicide, alcohol dependence, anxiety and depression. Concern for strong genetic basis for major depression. Med history reviewed and patient responded well to SSRIs with significant reduction of symptoms. Pt continues to have sleep maintenance dysfunction and will start Zolpidem. Med s/e and adverse effects discussed with pt and agreeable. Propranolol has been effective at reducing physical symptoms of anxiety. Tolerating Sertraline and Mirtazapine well and appropriate to continue. On-going intermittent suicidal ideations. Overall, I spent a total of 45 minutes with this case including review of chart records, nursing report, review of lab work, direct evaluation of the patient at bedside, counseling the patient, multidisciplinary team meeting, orders, and documentation in the electronic health record. (1) Suicidal ideation: (2) Insomnia: (3) Major depressive disorder, recurrent episode, severe with anxious distress: Plan 02/23/25: Start Zolpidem 5mg hs Labs: vit D, b12, fasting lipids, A1C 02/22/2025: The patient was admitted to the [facility] ([facility] mental health unit) on q15 min checks (behavioral with suicide precautions) for safety. The patient will participate in group, recreational, and milieu therapies and will be offered additional individual and family sessions as clinically appropriate. -Start sertraline 50mg daily -Start mirtazapine 15mg HS -Start propranolol 10mg TID Inventory Assets Strengths: supportive relationships, willing to get treatment Needs: safety and stabilization, medication adjustment, additional coping skills, increased outpatient services Suicide Risk Level Suicide Risk Level: High-Moderate (q15 min suicide checks) (depression with SI but feels safe in the hospital and feels comfortable asking for support when needed) Suicide Risk Level Comments: High-Moderate due to severe depression with SI with plan prior to admission but feels safe in the hospital, able to safety contract and agrees to let nursing/staff know should they develop plan, intent or feel unable to remain safe. 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 Reports an increase in panic symptoms with associated hypervigilance, muscle t ension, feelings of impending doom, shortness of breath, increased heart rate and occurring daily. Reports propranolol has been effective to alleviate physical symptoms. Prior to hospitalization was researching how much Benadryl she would need for a completed suicide. Reports having ongoing intermittent suicidal ideations. Reports past 2 to 3 years not having depression while adherent to Prozac and Wellbutrin. Reports work stressors of initially having a uncooperative boss who made her life difficult. Complains of current anhedonia, sleep onset and maintenance difficulties, hopelessness, poor appetite, inability to cope. Reports when depression is controlled she does not present significant anxiety and is sleeping well. Family psychiatric history: Paternal grandfather with completed suicide, paternal uncle with PTSD secondary to trauma and due to excess alcoholism, older brother with alcoholism and due to complications, mother with "mood swings" on Lexapro, and father with depression. Reports mirtazapine was not effective for her to maintain sleep last night However helped her fall asleep. Received Vistaril as needed which was ineffective. Denies GI side effects or headache. Is considering moving to [place] to be closer to family. Physical Exam Mental Examination Appearance: Well Groomed Eye Contact: Maintains Eye Contact Motor Behavior: Wringing Hands Speech: Normal Mood: Depressed, Sad and Tearful Affect: Constricted and Sad Thought Process: Intact and Linear Thought Content: Intact Hallucinations: None Insight: Fair Judgement: Fair Vital Signs (Past 24 Hours) Last Vital Signs Temp 36.8 C 02/23/25 06:23 Pulse 82 02/23/25 14:11 Resp 18 02/23/25 06:23 BP 125/89 02/23/25 14:11 Pulse Ox 95 02/22/25 21:38 O2 Del Method Room Air 02/22/25 21:38 Results & Data ([facility]) Current Inpatient Medications Current Inpatient Medications: Current Inpatient Medications Acetaminophen (Acetaminophen 325 Mg Tab) 650 mg PO Q4H PRN PRN Reason: Headache or Minor Fever Stop: 03/23/25 14:15 Last Admin: 02/21/25 17:39 Dose: 650 mg Al Hydrox/Mg Hydrox/Simethicone (Aluminum/Magnesium Susp 30 Ml Udc) 30 ml PO Q4H PRN PRN Reason: GI Upset Stop: 03/23/25 14:15 Bismuth Subsalicylate (Bismuth Subsalicylate 262 Mg Chew) 2 tab PO Q30M PRN PRN Reason: Loose Stool/Diarrhea Stop: 03/23/25 14:15 Hydroxyzine HCl (Hydroxyzine Hcl 25 Mg Tab) 50 mg PO HSZ PRN PRN Reason: Insomnia Stop: 03/23/25 14:15 Last Admin: 02/23/25 03:04 Dose: 50 mg Hydroxyzine HCl (Hydroxyzine Hcl 25 Mg Tab) 25 mg PO Q4H PRN PRN Reason: Anxiety Stop: 03/23/25 14:15 Last Admin: 02/23/25 04:03 Dose: 25 mg Ibuprofen (Ibuprofen 200 Mg Tab) 400 mg PO Q8H PRN PRN Reason: Pain Stop: 03/23/25 18:14 Last Admin: 02/21/25 18:24 Dose: 400 mg Lisinopril (Lisinopril 10 Mg Tab) 10 mg PO DAILY DANNI Stop: 03/24/25 08:59 Last Admin: 02/23/25 09:13 Dose: 10 mg Magnesium Hydroxide (Magnesium Hydroxide Susp 30 Ml Udc) 30 ml PO DAILY PRN PRN Reason: Constipation Stop: 03/23/25 14:15 Mirtazapine (Mirtazapine Tab 15 Mg Tab) 15 mg PO HS DANNI Stop: 03/24/25 21:59 Last Admin: 02/22/25 21:42 Dose: 15 mg Propranolol HCl (Propranolol Hcl 10 Mg Tab) 10 mg PO TID DANNI Stop: 03/24/25 10:49 Last Admin: 02/23/25 14:13 Dose: 10 mg Sertraline HCl (Sertraline Hcl 50 Mg Tablet) 50 mg PO QAM DANNI Stop: 03/25/25 08:59 Last Admin: 02/23/25 09:13 Dose: 50 mg Sodium Chloride (Sodium Chloride 0.65% Na Soln 45 Ml ([place])) 1 - 2 sprays NA PRN PRN PRN Reason: Nasal Dryness/Congestion Stop: 03/23/25 14:15 Mental Health & Subst Abuse Tx Therapist Name of Therapist: None Cold [employer] Inspector Name of Cold [employer] Inspector: None Post Discharge Appointments Primary Care Physician Name Of Family Doctor/PCP: [facility]
[2025-02-23] MEDS: ZOLPIDEM TARTRATE 5 MG TAB PO SCH (21:27)
[2025-02-24 08:07] LABS: Hemoglobin A1C 5.4 % (4.5-5.6)
[2025-02-24 08:10] LABS: Cholesterol 195.0 mg/dl (0-200); HDL Cholesterol 42.0 mg/dl; Triglycerides 124.0 mg/dl (0-150)
[2025-02-24] MEDS: CHOLECALCIFEROL 125 MCG (5,000 UNITS) TAB PO SCH (12:59)
--- NOTE | 2025-02-24 15:53 | Psychiatric Progress Note ---
Date of Service February 24, 2025 Impression / Recommendations Impression ANUP VALADEZ is a 45-year-old woman who currently lives in [place] alone, has a history of depression and anxiety, and was admitted on 02/21/25 13:21 on a 201 voluntary commitment for depression with SI with plan of overdosing on Benadryl. Concern for MDD with anxious distress. Associated panic symptoms. Family psych history remarkable for completed suicide, alcohol dependence, anxiety and depression. Concern for strong genetic basis for major depression. A: Zolpidem was effective for patient to maintain sleep. Patient is catastrophizing with prominent anxious ruminations. Continues to be depressed with low self-esteem and increased guilt. Ongoing passive suicidal ideations. Vitamin D resulted as inefficient and supplementation was started. Would benefit from outpatient psychiatry postdischarge. Overall, I spent a total of 45 minutes with this case including review of chart records, nursing report, review of lab work, direct evaluation of the patient at bedside, counseling the patient, multidisciplinary team meeting, orders, and documentation in the electronic health record. (1) Suicidal ideation: (2) Insomnia: (3) Major depressive disorder, recurrent episode, severe with anxious distress: Plan 02/24/25: Vit D3 5000units daily 02/23/25: Start Zolpidem 5mg hs Labs: vit D, b12, fasting lipids, A1C 02/22/2025: The patient was admitted to the [facility] ([facility] mental health unit) on q15 min checks (behavioral with suicide precautions) for safety. The patient will participate in group, recreational, and milieu therapies and will be offered additional individual and family sessions as clinically appropriate. -Start sertraline 50mg daily -Start mirtazapine 15mg HS -Start propranolol 10mg TID Inventory Assets Strengths: supportive relationships, willing to get treatment Needs: safety and stabilization, medication adjustment, additional coping skills, increased outpatient services Suicide Risk Level Suicide Risk Level: High-Moderate (q15 min suicide checks) (depression with SI but feels safe in the hospital and feels comfortable asking for support when needed) Suicide Risk Level Comments: High-Moderate due to severe depression with SI with plan prior to admission but feels safe in the hospital, able to safety contract and agrees to let nursing/staff know should they develop plan, intent or feel unable to remain safe. Risk Factors Assessment Male: No : Yes Do You Have Access To A Gun?: No Health Problems: No Mental Health Diagnoses: Yes Substance Use Disorders: No Previous Attempt: Yes Family History of Suicide: Yes Previous Psychiatric Hospitalization: No Hopelessness: Yes Protective Factors Assessment Sabianism Beliefs: Yes Employed: Yes ([employer]) Stable Relationships: Yes Supportive Family: Yes Interval History Identifying Information ANUP VALADEZ is a 45-year-old woman who currently lives in [place] alone, has a history of depression and anxiety, and was admitted on 02/21/25 13:21 on a 201 voluntary commitment for depression with SI with plan of overdosing on Benadryl. Chief Complaint "Anxiety". Review of Systems Sleep Information Total Hours of Sleep: 7.25 Meal Information Percent Meal Consumed - Breakfast: 50 Percent Meal Consumed - Lunch: 50 Percent Meal Consumed - Dinner: 100 Subjective Subjective Patient was seen & assessed and interval progress reviewed with treatment team nursing and social work Overnight patient slept well and denies any awakenings. Feels more rested. Reports an increase in anxious ruminations and is afraid to go back to work. During interview she becomes tearful and reports feeling like a burden and why would anyone want to help her. Endorses ongoing passive SI and appears distressed. Reports no recent increase in physical anxiety symptoms and tolerating propranolol well. Physical Exam Mental Examination Appearance: Well Groomed Eye Contact: Maintains Eye Contact Motor Behavior: Wringing Hands Speech: Normal Mood: Depressed, Sad and Tearful Affect: Constricted and Sad Thought Process: Intact and Linear Thought Content: Intact Hallucinations: None Insight: Fair Judgement: Fair Vital Signs (Past 24 Hours) Last Vital Signs Temp 37 C 02/24/25 06:24 Pulse 76 02/24/25 14:35 Resp 18 02/24/25 14:35 BP 130/87 02/24/25 14:35 Pulse Ox 95 02/22/25 21:38 O2 Del Method Room Air 02/22/25 21:38 Results & Data ([facility]) Laboratory Results Laboratory Results - last 24 hr 02/24/25 07:16 Estimat Average Glucose 108 Hemoglobin A1c 5.4 Triglycerides 124 Cholesterol 195 LDL Cholesterol, Calc 128 VLDL Cholesterol, Calc 25 HDL Cholesterol 42 Cholesterol/HDL Ratio 4.6 Vitamin B12 508 25-OH Vitamin D Total 26.3 L Current Inpatient Medications Current Inpatient Medications: Current Inpatient Medications Acetaminophen (Acetaminophen 325 Mg Tab) 650 mg PO Q4H PRN PRN Reason: Headache or Minor Fever Stop: 03/23/25 14:15 Last Admin: 02/21/25 17:39 Dose: 650 mg Al Hydrox/Mg Hydrox/Simethicone (Aluminum/Magnesium Susp 30 Ml Udc) 30 ml PO Q4H PRN PRN Reason: GI Upset Stop: 03/23/25 14:15 Bismuth Subsalicylate (Bismuth Subsalicylate 262 Mg Chew) 2 tab PO Q30M PRN PRN Reason: Loose Stool/Diarrhea Stop: 03/23/25 14:15 Hydroxyzine HCl (Hydroxyzine Hcl 25 Mg Tab) 50 mg PO HSZ PRN PRN Reason: Insomnia Stop: 03/23/25 14:15 Last Admin: 02/23/25 03:04 Dose: 50 mg Hydroxyzine HCl (Hydroxyzine Hcl 25 Mg Tab) 25 mg PO Q4H PRN PRN Reason: Anxiety Stop: 03/23/25 14:15 Last Admin: 02/23/25 04:03 Dose: 25 mg Ibuprofen (Ibuprofen 200 Mg Tab) 400 mg PO Q8H PRN PRN Reason: Pain Stop: 03/23/25 18:14 Last Admin: 02/21/25 18:24 Dose: 400 mg Lisinopril (Lisinopril 10 Mg Tab) 10 mg PO DAILY DANNI Stop: 03/24/25 08:59 Last Admin: 02/24/25 09:44 Dose: 10 mg Magnesium Hydroxide (Magnesium Hydroxide Susp 30 Ml Udc) 30 ml PO DAILY PRN PRN Reason: Constipation Stop: 03/23/25 14:15 Mirtazapine (Mirtazapine Tab 15 Mg Tab) 15 mg PO HS DANNI Stop: 03/24/25 21:59 Last Admin: 02/23/25 21:27 Dose: 15 mg Propranolol HCl (Propranolol Hcl 10 Mg Tab) 10 mg PO TID DANNI Stop: 03/24/25 10:49 Last Admin: 02/24/25 14:29 Dose: 10 mg Sertraline HCl (Sertraline Hcl 50 Mg Tablet) 50 mg PO QAM DANNI Stop: 03/25/25 08:59 Last Admin: 02/24/25 09:43 Dose: 50 mg Sodium Chloride (Sodium Chloride 0.65% Na Soln 45 Ml ([place])) 1 - 2 sprays NA PRN PRN PRN Reason: Nasal Dryness/Congestion Stop: 03/23/25 14:15 Vitamin D (Cholecalciferol 125 Mcg (5,000 Units) Tab) 125 mcg PO QAM DANNI Stop: 03/26/25 10:29 Last Admin: 02/24/25 12:59 Dose: 125 mcg Zolpidem Tartrate (Zolpidem Tartrate 5 Mg Tab) 5 mg PO HSZ DANNI Stop: 03/25/25 21:59 Last Admin: 02/23/25 21:27 Dose: 5 mg Mental Health & Subst Abuse Tx Psychiatrist Name of Psychiatrist: [facility] Psychiatrist's Phone Number: Date Of Appointment With Psychiatric Provider: 03/04/2025 Time of Appointment with Psychiatrist: 5:00PM Psychiatric Appointment Comment: This is an intake appointment for therapy + psychiatry. Zoom link in email. Therapist Name of Therapist: [facility] Therapist's Phone Number: Date of Therapist Appointment: 03/04/2025 Time of Therapist Appointment: 5:00PM Therapy Appointment Comment: This is an intake appointment for therapy + psychiatry. Zoom link in email. Mill Laborer Name of Mill Laborer: None Post Discharge Appointments Primary Care Physician Name Of Family Doctor/PCP: DANNY fajardo
[2025-02-25] MEDS: PSYLLIUM HUSK 4GM PACKET PO SCH (09:32)
--- NOTE | 2025-02-25 15:42 | Psychiatric Progress Note ---
Date of Service February 25, 2025 Impression / Recommendations Impression ANUP VALADEZ is a 45-year-old woman who currently lives in [place] alone, has a history of depression and anxiety, and was admitted on 02/21/25 13:21 on a 201 voluntary commitment for depression with SI with plan of overdosing on Benadryl. Concern for MDD with anxious distress. Associated panic symptoms. Family psych history remarkable for completed suicide, alcohol dependence, anxiety and depression. Concern for strong genetic basis for major depression. A: Patient continues to be in a depressive episode with significant sleep disruption, poor self-esteem, increased guilt, and anxious ruminations. Introduced the cognitive behavioral mood cycle and identified her cognitive distortions. Plan to optimize zolpidem dosing today and she was advised to not continue this medication on a long-term basis due to risk of dependence; patient agreeable. Overall, I spent a total of 45 minutes with this case including review of chart records, nursing report, review of lab work, direct evaluation of the patient at bedside, counseling the patient, multidisciplinary team meeting, orders, and documentation in the electronic health record. (1) Suicidal ideation: (2) Insomnia: (3) Major depressive disorder, recurrent episode, severe with anxious distress: Plan 02/25/2025: Increase zolpidem to 10 mg at bedtime 02/24/25: Vit D3 5000units daily 02/23/25: Start Zolpidem 5mg hs Labs: vit D, b12, fasting lipids, A1C 02/22/2025: The patient was admitted to the [facility] ([facility] mental health unit) on q15 min checks (behavioral with suicide precautions) for safety. The patient will participate in group, recreational, and milieu therapies and will be offered additional individual and family sessions as clinically appropriate. -Start sertraline 50mg daily -Start mirtazapine 15mg HS -Start propranolol 10mg TID Inventory Assets Strengths: supportive relationships, willing to get treatment Needs: safety and stabilization, medication adjustment, additional coping skills, increased outpatient services Suicide Risk Level Suicide Risk Level: High-Moderate (q15 min suicide checks) (depression with SI but feels safe in the hospital and feels comfortable asking for support when needed) Suicide Risk Level Comments: High-Moderate due to severe depression with SI with plan prior to admission but feels safe in the hospital, able to safety contract and agrees to let nursing/staff know should they develop plan, intent or feel unable to remain safe. Risk Factors Assessment Male: No : Yes Do You Have Access To A Gun?: No Health Problems: No Mental Health Diagnoses: Yes Substance Use Disorders: No Previous Attempt: Yes Family History of Suicide: Yes Previous Psychiatric Hospitalization: No Hopelessness: Yes Protective Factors Assessment Jew Beliefs: Yes Employed: Yes ([employer]) Stable Relationships: Yes Supportive Family: Yes Interval History Identifying Information ANUP VALADEZ is a 45-year-old woman who currently lives in [place] alone, has a history of depression and anxiety, and was admitted on 02/21/25 13:21 on a 201 voluntary commitment for depression with SI with plan of overdosing on Benadryl. Chief Complaint Depression Review of Systems Sleep Information Total Hours of Sleep: 4.5 Meal Information Percent Meal Consumed - Breakfast: 75 Percent Meal Consumed - Lunch: 90 Percent Meal Consumed - Dinner: 70 Subjective Subjective Patient was seen & assessed and interval progress reviewed with treatment team nursing and social work Slept 4.5 hours. Had bowel movement today. Patient reports having trouble fal ling asleep and had significant anxious ruminations last night. Unable to stay asleep through the night. Reports no change in physical anxiety symptoms and is controlled. We discussed common automatic thoughts the patient engages in and reports often not being able to ask for help and taking all the responsibility and this has impacted her performance at work; does not ask for help due to fear of judgment or feeling like a burden.At times the patient is tearful and present self derogatory thoughts judgment. Physical Exam Mental Examination Appearance: Well Groomed Eye Contact: Maintains Eye Contact Motor Behavior: Wringing Hands Speech: Normal Mood: Depressed, Sad and Tearful Affect: Constricted and Sad Thought Process: Intact and Linear Thought Content: Intact Hallucinations: None Insight: Fair Judgement: Fair Vital Signs (Past 24 Hours) Last Vital Signs Temp 36.7 C 02/25/25 06:27 Pulse 77 02/25/25 14:03 Resp 18 02/25/25 06:27 BP 107/76 02/25/25 14:03 Pulse Ox 95 02/22/25 21:38 O2 Del Method Room Air 02/22/25 21:38 Results & Data ([facility]) Current Inpatient Medications Current Inpatient Medications: Current Inpatient Medications Acetaminophen (Acetaminophen 325 Mg Tab) 650 mg PO Q4H PRN PRN Reason: Headache or Minor Fever Stop: 03/23/25 14:15 Last Admin: 02/21/25 17:39 Dose: 650 mg Al Hydrox/Mg Hydrox/Simethicone (Aluminum/Magnesium Susp 30 Ml Udc) 30 ml PO Q4H PRN PRN Reason: GI Upset Stop: 03/23/25 14:15 Bismuth Subsalicylate (Bismuth Subsalicylate 262 Mg Chew) 2 tab PO Q30M PRN PRN Reason: Loose Stool/Diarrhea Stop: 03/23/25 14:15 Hydroxyzine HCl (Hydroxyzine Hcl 25 Mg Tab) 50 mg PO HSZ PRN PRN Reason: Insomnia Stop: 03/23/25 14:15 Last Admin: 02/25/25 03:10 Dose: 50 mg Hydroxyzine HCl (Hydroxyzine Hcl 25 Mg Tab) 25 mg PO Q4H PRN PRN Reason: Anxiety Stop: 03/23/25 14:15 Last Admin: 02/23/25 04:03 Dose: 25 mg Ibuprofen (Ibuprofen 200 Mg Tab) 400 mg PO Q8H PRN PRN Reason: Pain Stop: 03/23/25 18:14 Last Admin: 02/21/25 18:24 Dose: 400 mg Lisinopril (Lisinopril 10 Mg Tab) 10 mg PO DAILY DANNI Stop: 03/24/25 08:59 Last Admin: 02/25/25 08:50 Dose: 10 mg Magnesium Hydroxide (Magnesium Hydroxide Susp 30 Ml Udc) 30 ml PO DAILY PRN PRN Reason: Constipation Stop: 03/23/25 14:15 Mirtazapine (Mirtazapine Tab 15 Mg Tab) 15 mg PO HS DANNI Stop: 03/24/25 21:59 Last Admin: 02/24/25 20:58 Dose: 15 mg Propranolol HCl (Propranolol Hcl 10 Mg Tab) 10 mg PO TID DANNI Stop: 03/24/25 10:49 Last Admin: 02/25/25 14:04 Dose: 10 mg Sertraline HCl (Sertraline Hcl 50 Mg Tablet) 50 mg PO QAM DANNI Stop: 03/25/25 08:59 Last Admin: 02/25/25 08:50 Dose: 50 mg Sodium Chloride (Sodium Chloride 0.65% Na Soln 45 Ml ([place])) 1 - 2 sprays NA PRN PRN PRN Reason: Nasal Dryness/Congestion Stop: 03/23/25 14:15 Vitamin D (Cholecalciferol 125 Mcg (5,000 Units) Tab) 125 mcg PO QAM DANNI Stop: 03/26/25 10:29 Last Admin: 02/25/25 08:50 Dose: 125 mcg Zolpidem Tartrate (Zolpidem Tartrate 5 Mg Tab) 10 mg PO HSZ DANNI Stop: 03/27/25 21:59 Mental Health & Subst Abuse Tx Psychiatrist Name of Psychiatrist: Ar[facility] [place] Psychiatrist's Phone Number: Date Of Appointment With Psychiatric Provider: 03/04/2025 Time of Appointment with Psychiatrist: 5:00PM Psychiatric Appointment Comment: This is an intake appointment for therapy + psychiatry. Zoom link in email. Therapist Name of Therapist: [employer] Therapist's Phone Number: Date of Therapist Appointment: 03/04/2025 Time of Therapist Appointment: 5:00PM Therapy Appointment Comment: This is an intake appointment for therapy + psychiatry. Zoom link in email. Making Department Preparer Name of Making Department Preparer: None Post Discharge Appointments Primary Care Physician Name Of Family Doctor/PCP: DANNY Landisy scotty
[2025-02-25] MEDS: ZOLPIDEM TARTRATE 5 MG TAB PO SCH (21:03)
[2025-02-26 13:17] LABS: MDA negative; MDEA negative; MDMA (Ecstasy) Urine, Confirm negative; Marijuana Quant, GCMS Urine 65 ng/mL (<5)
--- NOTE | 2025-02-26 15:32 | Psychiatric Progress Note ---
Date of Service February 26, 2025 Impression / Recommendations Impression ANUP VALADEZ is a 45-year-old woman who currently lives in [place] alone, has a history of depression and anxiety, and was admitted on 02/21/25 13:21 on a 201 voluntary commitment for depression with SI with plan of overdosing on Benadryl. Concern for MDD with anxious distress. Associated panic symptoms. Family psych history remarkable for completed suicide, alcohol dependence, anxiety and depression. Concern for strong genetic basis for major depression. A: Patient is presenting less anxious ruminations today. Higher dose of zolpidem was effective for sleep maintenance and we will plan to continue. Past medications reviewed and given higher dose of SSRI in the past we will optimize current sertraline dose. Pending [facility] paperwork. Overall, I spent a total of 45 minutes with this case including review of chart records, nursing report, review of lab work, direct evaluation of the patient at bedside, counseling the patient, multidisciplinary team meeting, orders, and documentation in the electronic health record. (1) Suicidal ideation: (2) Insomnia: (3) Major depressive disorder, recurrent episode, severe with anxious distress: Plan 02/26/2025: Increase sertraline to 100 mg daily 02/25/2025: Increase zolpidem to 10 mg at bedtime 02/24/25: Vit D3 5000units daily 02/23/25: Start Zolpidem 5mg hs Labs: vit D, b12, fasting lipids, A1C 02/22/2025: The patient was admitted to the [facility] ([facility] unit) on q15 min checks (behavioral with suicide precautions) for safety. The patient will participate in group, recreational, and milieu therapies and will be offered additional individual and family sessions as clinically appropriate. -Start sertraline 50mg daily -Start mirtazapine 15mg HS -Start propranolol 10mg TID Inventory Assets Strengths: supportive relationships, willing to get treatment Needs: safety and stabilization, medication adjustment, additional coping skills, increased outpatient services Suicide Risk Level Suicide Risk Level: High-Moderate (q15 min suicide checks) (depression with SI but feels safe in the hospital and feels comfortable asking for support when needed) Suicide Risk Level Comments: High-Moderate due to severe depression with SI with plan prior to admission but feels safe in the hospital, able to safety contract and agrees to let nursing/staff know should they develop plan, intent or feel unable to remain safe. Risk Factors Assessment Male: No : Yes Do You Have Access To A Gun?: No Health Problems: No Mental Health Diagnoses: Yes Substance Use Disorders: No Previous Attempt: Yes Family History of Suicide: Yes Previous Psychiatric Hospitalization: No Hopelessness: Yes Protective Factors Assessment Jainism Beliefs: Yes Employed: Yes ([employer]) Stable Relationships: Yes Supportive Family: Yes Interval History Identifying Information ANUP VALADEZ is a 45-year-old woman who currently lives in [place] alone, has a history of depression and anxiety, and was admitted on 02/21/25 13:21 on a 201 voluntary commitment for depression with SI with plan of overdosing on Benadryl. Chief Complaint Depression Review of Systems Sleep Information Total Hours of Sleep: 7.25 Meal Information Percent Meal Consumed - Breakfast: 100 Percent Meal Consumed - Lunch: 100 Percent Meal Consumed - Dinner: 75 Subjective Subjective Patient was seen & assessed and interval progress reviewed with treatment team nursing and social work Patient slept well. Has case management intake next week. Reports sleeping well with no disruptions. Endorses less anxiety and presents a brighter affect. We reviewed past medications and she reports being on fluoxetine 80 mg and "found more relief on the higher dose". Waiting on [employer] paperwork. Interested in taking 3 weeks off and returning back to work on March 26. Denies having physical symptoms related to anxiety and rates propranolol as effective. Denies SI. Physical Exam Mental Examination Appearance: Well Groomed Eye Contact: Maintains Eye Contact Motor Behavior: Unremarkable Speech: Normal Mood: Euthymic and Calm Affect: Appropriate and Congruent Thought Process: Intact and Linear Thought Content: Intact Hallucinations: None Insight: Fair Judgement: Fair Vital Signs (Past 24 Hours) Last Vital Signs Temp 36.8 C 02/26/25 06:24 Pulse 110 H 02/26/25 13:59 Resp 16 02/26/25 06:24 BP 115/79 02/26/25 13:59 Pulse Ox 95 02/22/25 21:38 O2 Del Method Room Air 02/22/25 21:38 Results & Data ([facility]) Laboratory Results Laboratory Results - last 24 hr 02/21/25 08:30 Urine MDEA negative MDMA negative Urine MDMA negative U Marijuana THC Carboxy 65 H Drug Screen Comment SEE NOTE Current Inpatient Medications Current Inpatient Medications: Current Inpatient Medications Acetaminophen (Acetaminophen 325 Mg Tab) 650 mg PO Q4H PRN PRN Reason: Headache or Minor Fever Stop: 03/23/25 14:15 Last Admin: 02/21/25 17:39 Dose: 650 mg Al Hydrox/Mg Hydrox/Simethicone (Aluminum/Magnesium Susp 30 Ml Udc) 30 ml PO Q4H PRN PRN Reason: GI Upset Stop: 03/23/25 14:15 Bismuth Subsalicylate (Bismuth Subsalicylate 262 Mg Chew) 2 tab PO Q30M PRN PRN Reason: Loose Stool/Diarrhea Stop: 03/23/25 14:15 Hydroxyzine HCl (Hydroxyzine Hcl 25 Mg Tab) 50 mg PO HSZ PRN PRN Reason: Insomnia Stop: 03/23/25 14:15 Last Admin: 02/25/25 03:10 Dose: 50 mg Hydroxyzine HCl (Hydroxyzine Hcl 25 Mg Tab) 25 mg PO Q4H PRN PRN Reason: Anxiety Stop: 03/23/25 14:15 Last Admin: 02/23/25 04:03 Dose: 25 mg Ibuprofen (Ibuprofen 200 Mg Tab) 400 mg PO Q8H PRN PRN Reason: Pain Stop: 03/23/25 18:14 Last Admin: 02/21/25 18:24 Dose: 400 mg Lisinopril (Lisinopril 10 Mg Tab) 10 mg PO DAILY DANNI Stop: 03/24/25 08:59 Last Admin: 02/26/25 09:03 Dose: 10 mg Magnesium Hydroxide (Magnesium Hydroxide Susp 30 Ml Udc) 30 ml PO DAILY PRN PRN Reason: Constipation Stop: 03/23/25 14:15 Mirtazapine (Mirtazapine Tab 15 Mg Tab) 15 mg PO HS DANNI Stop: 03/24/25 21:59 Last Admin: 02/25/25 20:42 Dose: 15 mg Propranolol HCl (Propranolol Hcl 10 Mg Tab) 10 mg PO TID DANNI Stop: 03/24/25 10:49 Last Admin: 02/26/25 14:07 Dose: 10 mg Sertraline HCl (Sertraline Hcl 50 Mg Tablet) 50 mg PO QAM DANNI Stop: 03/25/25 08:59 Last Admin: 02/26/25 09:03 Dose: 50 mg Sodium Chloride (Sodium Chloride 0.65% Na Soln 45 Ml ([place])) 1 - 2 sprays NA PRN PRN PRN Reason: Nasal Dryness/Congestion Stop: 03/23/25 14:15 Vitamin D (Cholecalciferol 125 Mcg (5,000 Units) Tab) 125 mcg PO QAM DANNI Stop: 03/26/25 10:29 Last Admin: 02/26/25 09:03 Dose: 125 mcg Zolpidem Tartrate (Zolpidem Tartrate 5 Mg Tab) 10 mg PO HSZ DANNI Stop: 03/27/25 21:59 Last Admin: 02/25/25 21:03 Dose: 10 mg Mental Health & Subst Abuse Tx Psychiatrist Name of Psychiatrist: [facility] Psychiatrist's Phone Number: Date Of Appointment With Psychiatric Provider: 03/04/2025 Time of Appointment with Psychiatrist: 5:00PM Psychiatric Appointment Comment: This is an intake appointment for therapy + psychiatry. Zoom link in email. Therapist Name of Therapist: [employer] Therapist's Phone Number: Date of Therapist Appointment: 03/04/2025 Time of Therapist Appointment: 5:00PM Therapy Appointment Comment: This is an intake appointment for therapy + psychiatry. Zoom link in email. Sand Conditioner Machine Name of Sand Conditioner Machine: None Post Discharge Appointments Primary Care Physician Name Of Family Doctor/PCP: DANNY fajardo
[2025-02-26] MEDS: SERTRALINE HCL 50 MG TABLET PO ONE (16:05)
[2025-02-27] MEDS: SERTRALINE HCL 100 MG TABLET PO SCH (08:52)
--- NOTE | 2025-02-27 12:02 | Psychiatric Progress Note ---
Date of Service February 27, 2025 Impression / Recommendations Impression ANUP VALADEZ is a 45-year-old woman who currently lives in [place] alone, has a history of depression and anxiety, and was admitted on 02/21/25 13:21 on a 201 voluntary commitment for depression with SI with plan of overdosing on Benadryl. Concern for MDD with anxious distress. Associated panic symptoms. Family psych history remarkable for completed suicide, alcohol dependence, anxiety and depression. Concern for strong genetic basis for major depression. A: Patient continues to have some sleep onset problems 2/2 anxious ruminations. Able to maintain sleep. Discussed behavioral strategies to cope. Tolerating increased dose of sertraline and plan to continue. SI resolved. Overall, I spent a total of 35 minutes with this case including review of chart records, nursing report, review of lab work, direct evaluation of the patient at bedside, counseling the patient, multidisciplinary team meeting, orders, and documentation in the electronic health record. (1) Insomnia: (2) Major depressive disorder, recurrent episode, severe with anxious distress: Plan 02/27/2025: Continue medications and treatment plan 02/26/2025: Increase sertraline to 100 mg daily 02/25/2025: Increase zolpidem to 10 mg at bedtime 02/24/25: Vit D3 5000units daily 02/23/25: Start Zolpidem 5mg hs Labs: vit D, b12, fasting lipids, A1C 02/22/2025: The patient was admitted to the [facility] ([facility] health unit) on q15 min checks (behavioral with suicide precautions) for safety. The patient will participate in group, recreational, and milieu therapies and will be offered additional individual and family sessions as clinically appropriate. -Start sertraline 50mg daily -Start mirtazapine 15mg HS -Start propranolol 10mg TID Inventory Assets Strengths: supportive relationships, willing to get treatment Needs: safety and stabilization, medication adjustment, additional coping skills, increased outpatient services Suicide Risk Level Suicide Risk Level: High-Moderate (q15 min suicide checks) (depression with SI but feels safe in the hospital and feels comfortable asking for support when needed) Suicide Risk Level Comments: High-Moderate due to severe depression with SI with plan prior to admission but feels safe in the hospital, able to safety contract and agrees to let nursing/staff know should they develop plan, intent or feel unable to remain safe. Risk Factors Assessment Male: No : Yes Do You Have Access To A Gun?: No Health Problems: No Mental Health Diagnoses: Yes Substance Use Disorders: No Previous Attempt: Yes Family History of Suicide: Yes Previous Psychiatric Hospitalization: No Hopelessness: Yes Protective Factors Assessment Rastafari Beliefs: Yes Employed: Yes ([employer]) Stable Relationships: Yes Supportive Family: Yes Interval History Identifying Information ANUP VALADEZ is a 45-year-old woman who currently lives in [place] alone, has a history of depression and anxiety, and was admitted on 02/21/25 13:21 on a 201 voluntary commitment for depression with SI with plan of overdosing on Benadryl. Chief Complaint Depression Review of Systems Sleep Information Total Hours of Sleep: 8 Meal Information Percent Meal Consumed - Breakfast: 100 Percent Meal Consumed - Lunch: 100 Percent Meal Consumed - Dinner: 75 Subjective Subjective Patient was seen & assessed and interval progress reviewed with treatment team nursing and social work Pt slept 8 hours, received vistaril prn. Reports trouble falling asleep due to anxious ruminations. C/o muscle tensions, jaw clenching which worsened last night. Denies PIERSON, GI s/e. Endorses fair mood. Anxious about work situation. Physical Exam Mental Examination Appearance: Well Groomed Eye Contact: Maintains Eye Contact Motor Behavior: Unremarkable Speech: Normal Mood: Euthymic and Calm Affect: Appropriate and Congruent Thought Process: Intact and Linear Thought Content: Intact Hallucinations: None Insight: Fair Judgement: Fair Vital Signs (Past 24 Hours) Last Vital Signs Temp 36.4 C L 02/27/25 06:20 Pulse 67 02/27/25 06:21 Resp 16 02/27/25 06:20 BP 115/76 02/27/25 06:21 Pulse Ox 95 02/22/25 21:38 O2 Del Method Room Air 02/22/25 21:38 Results & Data ([facility]) Laboratory Results Laboratory Results - last 24 hr 02/21/25 08:30 Urine MDEA negative MDMA negative Urine MDMA negative U Marijuana THC Carboxy 65 H Drug Screen Comment SEE NOTE Current Inpatient Medications Current Inpatient Medications: Current Inpatient Medications Acetaminophen (Acetaminophen 325 Mg Tab) 650 mg PO Q4H PRN PRN Reason: Headache or Minor Fever Stop: 03/23/25 14:15 Last Admin: 02/21/25 17:39 Dose: 650 mg Al Hydrox/Mg Hydrox/Simethicone (Aluminum/Magnesium Susp 30 Ml Udc) 30 ml PO Q4H PRN PRN Reason: GI Upset Stop: 03/23/25 14:15 Bismuth Subsalicylate (Bismuth Subsalicylate 262 Mg Chew) 2 tab PO Q30M PRN PRN Reason: Loose Stool/Diarrhea Stop: 03/23/25 14:15 Hydroxyzine HCl (Hydroxyzine Hcl 25 Mg Tab) 50 mg PO HSZ PRN PRN Reason: Insomnia Stop: 03/23/25 14:15 Last Admin: 02/27/25 00:07 Dose: 50 mg Hydroxyzine HCl (Hydroxyzine Hcl 25 Mg Tab) 25 mg PO Q4H PRN PRN Reason: Anxiety Stop: 03/23/25 14:15 Last Admin: 02/23/25 04:03 Dose: 25 mg Ibuprofen (Ibuprofen 200 Mg Tab) 400 mg PO Q8H PRN PRN Reason: Pain Stop: 03/23/25 18:14 Last Admin: 02/21/25 18:24 Dose: 400 mg Lisinopril (Lisinopril 10 Mg Tab) 10 mg PO DAILY DANNI Stop: 03/24/25 08:59 Last Admin: 02/27/25 08:52 Dose: 10 mg Magnesium Hydroxide (Magnesium Hydroxide Susp 30 Ml Udc) 30 ml PO DAILY PRN PRN Reason: Constipation Stop: 03/23/25 14:15 Mirtazapine (Mirtazapine Tab 15 Mg Tab) 15 mg PO HS DANNI Stop: 03/24/25 21:59 Last Admin: 02/26/25 20:40 Dose: 15 mg Propranolol HCl (Propranolol Hcl 10 Mg Tab) 10 mg PO TID DANNI Stop: 03/24/25 10:49 Last Admin: 02/27/25 08:52 Dose: 10 mg Sertraline HCl (Sertraline Hcl 100 Mg Tablet) 100 mg PO QAM DANNI Stop: 03/29/25 08:59 Last Admin: 02/27/25 08:52 Dose: 100 mg Sodium Chloride (Sodium Chloride 0.65% Na Soln 45 Ml (Stephens)) 1 - 2 sprays NA PRN PRN PRN Reason: Nasal Dryness/Congestion Stop: 03/23/25 14:15 Vitamin D (Cholecalciferol 125 Mcg (5,000 Units) Tab) 125 mcg PO QAM DANNI Stop: 03/26/25 10:29 Last Admin: 02/27/25 08:52 Dose: 125 mcg Zolpidem Tartrate (Zolpidem Tartrate 5 Mg Tab) 10 mg PO HSZ DANNI Stop: 03/27/25 21:59 Last Admin: 02/26/25 20:40 Dose: 10 mg Mental Health & Subst Abuse Tx Psychiatrist Name of Psychiatrist: Arcadio [facility] Psychiatrist's Phone Number: Date Of Appointment With Psychiatric Provider: 03/04/2025 Time of Appointment with Psychiatrist: 5:00PM Psychiatric Appointment Comment: This is an intake appointment for therapy + psychiatry. Zoom link in email. Therapist Name of Therapist: [employer] Therapist's Phone Number: Date of Therapist Appointment: 03/04/2025 Time of Therapist Appointment: 5:00PM Therapy Appointment Comment: This is an intake appointment for therapy + psychiatry. Zoom link in email. Leasing Representative Name of Leasing Representative: None Post Discharge Appointments Primary Care Physician Name Of Family Doctor/PCP: DANNY [facility]
--- NOTE | 2025-02-28 09:31 | Discharge Summary ---
Date of Service February 28, 2025 History of Present Illness Sheila presents for psychiatric admission following worsening depression and anxiety symptoms and intensifying suicidal ideation to the point of rehearsal behaviors to overdose with Benadryl. 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 She reports a month-long exacerbation of depression and anxiety that began in July following changes at work. She describes feeling constantly physically uncomfortable, as if "bracing for a crash". Her anxiety has also intensified manifesting as constant physical discomfort, nausea and panic attacks. She describes feeling unable to relax physically. She endorses depressive symptoms including tearfulness, anhedonia (no longer interested in tennis), decreased motivation, self-guilt, helplessness, hopelessness, decreased energy, decreased concentration, "despair", decreased appetite with nausea, and decreased sleep with 2-3 hours per night. Work related stress has been a significant contributing factor and recently has found she cannottolerate meetings with her coworkers which previously she found enjoyable and not stressful. She has transitioned to a new position with intensive training over the last 6 weeks but this has been overwhelming, anxiety provoking and causing self guilt that she is not living up to others expectations when she feels they helped her get this position and that "I'm letting everyone down". She reports suicidal thoughts for many months which she coped with by using humo r or jokes but these have continued to intensify. She notes that on many nights she has prayed that she could go to sleep and not wake up. Over the summer had been researching potential ways she could such as looking into means such as cyanide or apple seeds. On Tuesday night she had a bottle of Benadryl next to her and was looking up how much it would take to . At this point she real ized she needed to seek additional support and reached out to her boss who then encouraged her to come to the hospital. She notes some shame and guilt about having to be in the inpatient setting thinking that she should have been able to fix this on her own or "how did I let it get this to this point". However she can also acknowledge that she has been attempting various coping skills including meditation, yoga, walking and mindfulness practices. She is also considered moving to [place] to be closer to her supportive family. She discontinued her psychiatric medications earlier in the year due to financial constraints and had been stretching out the dosing. She recently restarted Prozac at 80 mg daily and Wellbutrin 300 mg about 2 weeks ago but has only taken approximately 3 doses over this timeframe. She reports that Prozac was previously helpful when taking consistently for several years but also at times seemed to not be offering as much benefit recently. She identifies her biggest target symptoms as: sleep and being able to relax physically. Psychiatric ROS notable for no current nor history of symptoms of padmini, psychosis, OCD nor eating disorder. Physical Exam Mental Examination Appearance: Well Groomed Eye Contact: Maintains Eye Contact Motor Behavior: Unremarkable Speech: Normal Mood: Euthymic and Calm Affect: Appropriate and Congruent Thought Process: Intact and Linear Thought Content: Intact Hallucinations: None Insight: Fair Judgement: Fair Vital Signs (Past 24 Hours) Last Vital Signs Temp 36.7 C 02/28/25 06:17 Pulse 75 02/28/25 06:18 Resp 18 02/28/25 06:17 BP 113/79 02/28/25 06:18 Pulse Ox 99 02/27/25 19:18 O2 Del Method Room Air 02/27/25 19:18 Principal Diagnosis Major depressive disorder, recurrent episode, severe with anxious distress: Psychiatric Data See daily stay summary. In short, safety was maintained and the patient was cooperative with care. Medication changes included starting Sertraline 100mg daily, Mirtazapine 15mg HS, Propranolol 10mg TID, Vit D supplement, Zolpidem 10mg HS and they tolerated this well. A family session was held and safety plan was completed prior to discharge. Patient presented significant improvement in her sleep, had less anxious ruminations and physical anxiety and presented with a brighter and more reactive affect. She was connected to [facility]. She denied SI soon after admission and maintained denial throughout hospitalization. Day of Discharge Assessment Today the patient voices readiness for discharge. They note improvement in mood and deny thoughts to harm self or others. Thoughts remain organized and they are improved from admission. There is no evidence of psychosis. They agree to take mediations as prescribed and keep follow-up appointments. They are stable for discharge to outpatient level of care. Overall, I spent a total of 40 minutes with this case including review of chart records, nursing report, review of lab work, direct evaluation of the patient at bedside, counseling the patient, multidisciplinary team meeting, orders, and documentation in the electronic health record. Transition of Care Transition Of Care Record: was reviewed with the patient Advance Directives Advance Directives Information Provided: Yes Advance Directives: No Mental Health Advance Directive: No Advance Directives on File: No Living Will: No Power of Business Integration Analyst: No Advance Directives Reason:: Declines as Mental Health Visit. Suicide Risk Level Suicide Risk Level Comments: High-Moderate due to severe depression with SI with plan prior to admission but feels safe in the hospital, able to safety contract and agrees to let nursing/staff know should they develop plan, intent or feel unable to remain safe. Risk Factors Assessment Male: No : Yes Do You Have Access To A Gun?: No Health Problems: No Mental Health Diagnoses: Yes Substance Use Disorders: No Previous Attempt: Yes Family History of Suicide: Yes Previous Psychiatric Hospitalization: No Hopelessness: Yes Protective Factors Assessment Alevism Beliefs: Yes Employed: Yes ([employer]) Stable Relationships: Yes Supportive Family: Yes Discharge Data Lab Results 02/21/25 02/21/25 02/21/25 08:30 08:50 11:51 WBC 11.96 H RBC 4.96 Hgb 14.8 Hct 43.6 MCV 87.9 MCH 29.8 MCHC 33.9 RDW Std Deviation 38.5 RDW Coeff of Mary 11.9 Plt Count 257 MPV 10.6 Immature Gran % (Auto) 0.3 Neut % (Auto) 82.0 Lymph % (Auto) 12.0 [place] % (Auto) 5.2 Eos % (Auto) 0.2 Baso % (Auto) 0.3 Neut # (Auto) 9.81 H Lymph # (Auto) 1.43 [place] # (Auto) 0.62 H Eos # (Auto) 0.02 Baso # (Auto) 0.04 Immature Gran # (Auto) 0.04 Sodium 135 L Potassium 3.9 Chloride 103 Carbon Dioxide 17 L Anion Gap 15 H BUN 8 Creatinine 0.90 Est Cr Clr Drug Dosing 81.1 eGFR 81.35 BUN/Creatinine Ratio 8.9 L Glucose 109 H Estimat Average Glucose Hemoglobin A1c Calcium 9.6 Total Bilirubin 1.2 H AST 17 ALT 9 Alkaline Phosphatase 59 Total Protein 7.8 Albumin 4.7 Globulin 3.1 Albumin/Globulin Ratio 1.5 Triglycerides Cholesterol LDL Cholesterol, Calc VLDL Cholesterol, Calc HDL Cholesterol Cholesterol/HDL Ratio Vitamin B12 25-OH Vitamin D Total TSH 2.227 HCG, Qual Negative Urine Color Yellow Urine Appearance Clear Urine pH 5.0 Ur Specific [place] 1.019 Urine Protein Negative Urine Glucose (UA) Negative Urine Ketones 4+ H Urine Blood Negative Urine Nitrite Negative Urine Bilirubin Negative Urine Urobilinogen Negative Ur Leukocyte Esterase Negative Urine Comment Salicylates < 3.0 L Urine Opiates Screen Neg Ur Methadone, Qual Neg Urine Fentanyl Screen Neg Acetaminophen 4 L Urine Barbiturates Neg Ur Phencyclidine (PCP) Neg U Amphetamin/Meth Scrn Neg Urine MDEA negative MDMA (Ecstasy) Screen Pos H MDMA negative Urine MDMA negative U Benzodiazepines Scrn Neg Ur Cocaine Metabolite Neg U Marijuana (THC) Screen Pos H U Marijuana THC Carboxy 65 H Drug Screen Comment SEE NOTE Ethyl Alcohol mg/dL < 10.0 SARS-CoV-2, RNA, NAAT NEGATIVE 02/24/25 07:16 WBC RBC Hgb Hct MCV MCH MCHC RDW Std Deviation RDW Coeff of Mary Plt Count MPV Immature Gran % (Auto) Neut % (Auto) Lymph % (Auto) [place] % (Auto) Eos % (Auto) Baso % (Auto) Neut # (Auto) Lymph # (Auto) [place] # (Auto) Eos # (Auto) Baso # (Auto) Immature Gran # (Auto) Sodium Potassium Chloride Carbon Dioxide Anion Gap BUN Creatinine Est Cr Clr Drug Dosing eGFR BUN/Creatinine Ratio Glucose Estimat Average Glucose 108 Hemoglobin A1c 5.4 Calcium Total Bilirubin AST ALT Alkaline Phosphatase Total Protein Albumin Globulin Albumin/Globulin Ratio Triglycerides 124 Cholesterol 195 LDL Cholesterol, Calc 128 VLDL Cholesterol, Calc 25 HDL Cholesterol 42 Cholesterol/HDL Ratio 4.6 Vitamin B12 508 25-OH Vitamin D Total 26.3 L TSH HCG, Qual Urine Color Urine Appearance Urine pH Ur Specific [place] Urine Protein Urine Glucose (UA) Urine Ketones Urine Blood Urine Nitrite Urine Bilirubin Urine Urobilinogen Ur Leukocyte Esterase Urine Comment Salicylates Urine Opiates Screen Ur Methadone, Qual Urine Fentanyl Screen Acetaminophen Urine Barbiturates Ur Phencyclidine (PCP) U Amphetamin/Meth Scrn Urine MDEA MDMA (Ecstasy) Screen MDMA Urine MDMA U Benzodiazepines Scrn Ur Cocaine Metabolite U Marijuana (THC) Screen U Marijuana THC Carboxy Drug Screen Comment Ethyl Alcohol mg/dL SARS-CoV-2, RNA, NAAT Hospital Course (1) Insomnia: (2) Major depressive disorder, recurrent episode, severe with anxious distress: Plan 02/27/2025: Continue medications and treatment plan 02/26/2025: Increase sertraline to 100 mg daily 02/25/2025: Increase zolpidem to 10 mg at bedtime 02/24/25: Vit D3 5000units daily 02/23/25: Start Zolpidem 5mg hs Labs: vit D, b12, fasting lipids, A1C 02/22/2025: The patient was admitted to the [facility] ([facility] mental health unit) on q15 min checks (behavioral with suicide precautions) for safety. The patient will participate in group, recreational, and milieu therapies and will be offer ed additional individual and family sessions as clinically appropriate. -Start sertraline 50mg daily -Start mirtazapine 15mg HS -Start propranolol 10mg TID Mental Health & Subst Abuse Tx Psychiatrist Name of Psychiatrist: [facility] Psychiatrist's Phone Number: Date Of Appointment With Psychiatric Provider: 03/04/2025 Time of Appointment with Psychiatrist: 5:00PM Psychiatric Appointment Comment: This is an intake appointment for therapy + psychiatry. Zoom link in email. Therapist Name of Therapist: [facility] Therapist's Phone Number: Date of Therapist Appointment: 03/04/2025 Time of Therapist Appointment: 5:00PM Therapy Appointment Comment: This is an intake appointment for therapy + psychiatry. Zoom link in email. Livestock Handler Name of Livestock Handler: None Post Discharge Appointments Primary Care Physician Name Of Family Doctor/PCP: [facility] Discharge Plan Discharge Items Patient Disposition: Home - Self-Care Reason For Visit: MAJOR DEPRESSIVE DISORDER Discharge Diagnosis: Major depressive disorder, recurrent episode, severe with anxious distress Condition on Discharge: Fair Activity: Resume your previous activity Non-emergency contact: Primary Care Provider, Psychiatrist and Therapist Call non-emergency contact if: you have any medication questions and your symptoms worsen Follow-up/Referrals: Felisa Woo CRNP [Primary Care Provider] - Diet: Regular Addtl Attending Provider Instructions: Continue Sertraline 100mg daily Continue Mirtazapine 15mg at bedtime Continue Propranolol 10mg three times daily (if physical anxiety improves, discuss on follow-up about switching to as needed) Continue Zolpidem 10mg at bedtime (discuss on follow-up appointment about disco ntinuing this medication or lowering dose; consider controlled release version at lower dose) Continue Vitamin D supplement. Follow-up with primary care doctor in 6 months for updated Vitamin D levels Engage in cognitive behavioral therapy, mindfulness meditation, self care Pending Studies at Discharge: No Stand-Alone Forms: My [employer], Smoking Cessation Medications and DC Order Prescriptions: New sertraline 100 mg Tablet 100 mg PO QAM Qty: 30 0RF propranolol 10 mg Tablet 10 mg PO TID Qty: 90 0RF mirtazapine 15 mg Tablet 15 mg PO HS Qty: 30 0RF zolpidem 10 mg tablet 10 mg PO HSZ Qty: 30 0RF cholecalciferol (vitamin D3) 125 mcg (5,000 unit) Tablet 125 mcg PO QAM Qty: 30 0RF hydroxyzine HCl 50 mg tablet 50 mg PO HSZ PRN (Reason: insomnia, anxiety) Qty: 30 0RF Discontinued lisinopril 10 mg PO DAILY fluoxetine 80 mg PO DAILY bupropion HCl 300 mg PO DAILY Discharge Orders: Discharge Order (Routine); Ordered 02/28/25 Ordered By: Bryce Ospina Admission Data Admit Date/Time: 02/21/25 13:21 Attending Provider: Bryce Ospina Admit Provider: Yissel Preist Primary Care Provider: Felisa Woo Other Interventions: Discharge Summary Assessment (RN) Last Done: 02/28/25 12:25 PSY Interdisciplinary Discharge Planning Last Done: 02/28/25 10:02 [place] [address] D/C day mgmt > 30 min Patient Type Established History Detailed Exam Detailed Medical Decision Making Moderate Complexity Diagnoses Insomnia G47.00 Major depressive disorder, recurrent episode, severe with anxious distress F33.2
== END 2025-02-28 12:13 | disposition home or self-care (01) | DRG 885 ==
LOC: ED 08:15 → SUATTDRO 13:21 → 3S 13:21
DX: Z81.8 Family history of other mental and behavioral disorders; F33.2 Major depressive disorder, recurrent severe without psychotic features; F41.1 Generalized anxiety disorder; F41.0 Panic disorder [episodic paroxysmal anxiety]; G47.00 Insomnia, unspecified; R45.851 Suicidal ideations; T43.226A Underdosing of selective serotonin reuptake inhibitors, initial encounter; Z88.5 Allergy status to narcotic agent; Z91.120 Patient's intentional underdosing of medication regimen due to financial hardship; T43.296A Underdosing of other antidepressants, initial encounter; Z79.899 Other long term (current) drug therapy